=== PATIENT | male | born 1975 | race Caucasian/White ===

== ENCOUNTER 2024-05-08 06:01 | Day surgery (SDC) | payer OTHER, SELFPAY ==
[2024-04-28 08:09] VITALS: BMI 27.7
[2024-04-28 08:43] LABS: ALT (SGPT) 24 U/L (0-50); AST (SGOT) 24 U/L (17-59); Albumin 4.8 g/dl (3.5-5.0); Alkaline Phosphatase 51 U/L (38-126); Blood Urea Nitrogen 17 mg/dl (9-20); Calcium 9.9 mg/dl (8.4-10.2); Carbon Dioxide 26 mmol/L (22-30); Chloride 104 mmol/L (98-107); Estimated Creatinine Clearance 119 ml/min; Glucose 99 mg/dl (70-99); Magnesium 2.1 mg/dl (1.6-2.3); Potassium 4.7 mmol/L (3.5-5.1); Sodium 142 mmol/L (135-145); Total Bilirubin 0.9 mg/dl (0.2-1.3); Total Protein 7.1 g/dl (6.3-8.2); eGFR > 60.00
[2024-04-28 08:46] LABS: % Basophils 0.7 % (0-2); % Eosinophils 1.2 % (0-6); % Lymphocytes 33.9 % (20.5-51.1); % Monocytes 9.3 % (1.7-9.3); % Neutrophils 54.9 % (42.2-75.2); Absolute Eosinophils 0.1 10^3/uL (0-0.7); Absolute Lymphocytes 1.4 10^3/uL (1.2-3.4); Absolute Monocytes 0.4 10^3/uL (0.1-0.6); Absolute Neutrophils 2.2 10^3/uL (1.4-6.5); Hematocrit 43.2 % (39.0-52.0); Mean Corp Hgb Conc. 34.7 g/dL (33.0-37.0); Mean Corpuscular Hgb 31.3 pg (27.0-31.0); Mean Platelet Volume 10.1 fL (7.4-10.4); Nucleated Red Blood Cells % 0 % (-); Platelet Count 224 10^3/uL (130-400); Red Cell Dist. Width 12.4 % (11.5-14.5); White Blood Cell Count 4.1 10^3/uL (4.8-10.8)
[2024-04-28 08:47] LABS: PT 15.1 Sec (11.4-14.6)
[2024-05-08] VITALS (11 sets, daily range): BP systolic 124–139; BP diastolic 69–83; BMI 27.5
[2024-05-08 08:50] LABS: ACT-LR - POC 247 Seconds (116-155)
--- NOTE | 2024-05-08 09:14 | ITS.CL.ABL ---
[employer] Head - Ablation
Ablation
Procedure Report:
ELECTROPHYSIOLOGY ABLATION STUDY
�
DATE:: May 08, 2024�����������������������������REFERRING: Dr. Sal Grimm
�
INDICATION: Paroxysmal supraventricular tachycardia in the form of atrial fibrillation.��
�
HISTORY: See H and P.��As above
�
ANTIARRHYTHMIC DRUG: No current medication
�
PRE-PROCEDURE JEROME: No intracardiac thrombus
�
PRESENTING RHYTHM: Sinus bradycardia
�
'TIME-OUT':��called and confirmed.
�
SEDATION/ANESTHESIA:��provided via the anesthesia department using general anesthesia (LMA).
�
INTRAVENOUS/ARTERIAL ACCESS:
Right femoral venous - 8Fr
Left femoral venous - 8 Fr, 6 Fr
Ultrasound guidance for bilateral femoral vein access was utilized by me to obtain access with demonstration of normal anatomy
CHADS-VASC Score:
�
HAS-Bled Score
�
PROCEDURE:
1.��A decapolar CS catheter was placed within the CS for mapping and pacing.��This was also used as the reference catheter for the 3-D map.
�
2. The intracardiac ultrasound catheter was positioned in the RA to identify the FO for targeting of transseptal puncture, assist��in identification of the pulmonary vein ostia, monitoring pre and post ablation pulmonary vein flow velocities,
monitoring for 'bubble' formation during RF application as a sign of thermal injury,��and to monitor for pericardial effusion during mapping and ablation procedure.���Left atrial size, LV ejection fraction, and pulmonary vein flows were monitored
pre and post ablation procedure. The other valves were inspected and found to be free of significant regurgitation or stenosis.
�
3.��Half of the calculated heparin bolus was administered prior to the first transeptal puncture.��Transseptal puncture was performed to diagnose RA and LA pressure so that safety of LA mapping and ablation could be further assessed, and to access
the left atrium and pulmonary veins for mapping and ablation.��This entailed advancing an 16 [place] with dilator into the superior vena cava and withdrawing both (monitoring intracardiac ultrasound, fluoroscopy and tip pressure) with the
tip oriented toward the atrial septum.��The fossa ovalis was engaged (indicated by sudden displacement of the sheath tip as well as tenting of the fossa seen on intracardiac ultrasound).��Left atrial access required a pass with the [place]
needle extended.��Left atrial catheter position was confirmed by pressure monitoring (RA mean pressure 8 mm Hg and LA mean presure 14 mm Hg), LA saturation ( 99 %),��as well as fluoroscopy.��The sheath was advanced over the dilator and positioned in
the left atrium.��This procedure was repeated for the Agilis sheath.��The remainder of the calculated heparin bolus was administered and heparin was
infused to maintain ACT at 300 -350 seconds throughout the case.
�
4.��RA pacing was performed via the proximal decapolar poles and LA pacing was performed via the distal decapolar poles.
�
5. A quadrapolar catheter was first positioned at the His position for His Bundle recording which was tagged via the 3-D Navex sytem, and then passed to the RVA for RV pacing and recording.
�
6. The multipolar catheter and the Penta spline catheter were placed in each of the LIPV, LSPV, RSPV and the RIPV.��
�
7.��Next, a 3-D map was created using Navex.���A 3-D reconstructed CT image was compared to the 3-D Navex map to assist in anatomic interpretation, mapping and ablation.��The CT image and the NavX image were fused.
�
8. A total of 50 lesions given to the left common ostium and the right pulmonary veins as well as the posterior wall from the roof to the floor. Entrance and exit block in all 4 pulmonary veins and the posterior wall was rendered. There were
short pauses with delivery to the left superior�left common ostium.
�
9. Normal sinus node and AV varun function noted. Retrograde conduction was midline and concentric. There was no evidence for dual varun physiology.
�
TOTAL FLOURO TIME: 17 minutes 103 mGy
�
TOTAL RF DURATION: 0 minutes
�
REVERSAL OF HEPARIN: 30 mg of protamine, slow IV administration
�
COMPLICATIONS:
None
Intracardiac US shows no pericardial effusion post ablation.
�
SUMMARY:��
Complex left atrial mapping and ablation.
Isolation of left common ostium and right pulm veins as well as left atrial posterior wall with PFA.
�
RECOMMENDATIONS:
1. Out of bed 4 hours consider same-day discharge
2. Resume anticoagulation
3.� Will meet in 6 to 8 weeks to discuss his ocular biopsy and he will need greater than 1 week off of oral anticoagulation. I did discuss that he needs at least 4 weeks of oral anticoagulation uninterrupted post PVI and we will need to coordinate
with his social services assistant regarding timing of his ocular biopsy.
4.��Continue apixaban as above
�
Copy to: Dr. Sal Grimm
�
[2024-05-08] MEDS: ANESTHETIC LOZENGE 1 LOZENGE PO (10:39)
[2024-05-08] MEDS: TYLENOL 650 MG PO (11:44)
--- NOTE | 2024-05-08 14:18 | W.PN.UPDATE ---
Update Note
Progress Note Update
49 yo WM s/p PVI (same day). He denies cp, sob, kayleen diet, voiding, EKG SB, b/l groins c/d/i no HT. He will continue OAC Eliquis tonight. Activity restrictions reviewed. He will f/u Dr. Grimm in 6 weeks to discuss plan for holding his eliquis prior
to his eye surgery. He is for d/c home after 2pm.
SUMMARY:��
Complex left atrial mapping and ablation.
Isolation of left common ostium and right pulm veins as well as left atrial posterior wall with PFA.
== END 2024-05-08 14:00 | disposition home or self-care (01) ==
LOC: CATH 06:01
PROVIDERS: ATTENDING PHYSICIAN Internal Medicine Cardiovascular Disease; FAMILY PHYSICIAN Family Medicine
DX: I48.0 Paroxysmal atrial fibrillation (principal); I47.19 Other supraventricular tachycardia; I08.1 Rheumatic disorders of both mitral and tricuspid valves; R00.2 Palpitations; R53.83 Other fatigue; Z79.01 Long term (current) use of anticoagulants
CPT/HCPCS: C1732; C1894; C1730; C1769; C1892; C1759; 36415; 75572; 80053; 83735; 85025; 85347; 85610; 86850; 86900; 86901; 93005; 93656; C1733; C1766; Q9967